=== PATIENT | male | born 1990 | race Caucasian/White ===

== ENCOUNTER 2018-04-18 21:35 | Emergency (ER) | payer BC, OTHER ==
[2018-04-18] MEDS ORDERED: Ondansetron 4 MG/2 ML SDV IVPUSH ONE (21:41)
[2018-04-18] MEDS ORDERED: Sodium Chloride 0.9% 1,000 ML IV ONE (21:41)
[2018-04-18] MEDS ORDERED: Diphtheria,Pertussis(Acell),Tetanus Vaccine 0.5 ML Syringe IM ONE (21:51)
--- NOTE | 2018-04-18 21:54 | EDM.PDOC ---
ED HPI GENERAL MEDICAL PROBLEM headache Pain Score (Numeric/FACES): 5 <Cj Tony - Last Filed: 04/18/18 23:23> - General Source of Information: Reports: Patient History Limitations: Reports: No Limitations - History of Present Illness Onset: Today <Adams Vinson Emeka - Last Filed: 04/19/18 15:33> - General Chief Complaint: Head Injury Stated Complaint: HIT IN FACE/HEAD BY BASEBALL Time Seen by Provider: 04/18/18 21:41 - History of Present Illness INITIAL COMMENTS - FREE TEXT/NARRATIVE: HISTORY AND PHYSICAL: History of present illness: Patient is a 27-year-old male who presents to the emergency room today with complaints of left orbital pain after being hit in the face with a baseball. He was playing baseball and missed a pitch and was hit in the left eye, does have swelling and pain. He reports that his left eye is "funny already" as he reports he has an immature left eye. Unsure of last tetanus shot. Review of systems: As per history of present illness and below otherwise all systems reviewed and negative. Past medical history: As per history of present illness and as reviewed below otherwise noncontributory. Surgical history: As per history of present illness and as reviewed below otherwise noncontributory. Social history: No reported history of drug or alcohol abuse. Family history: As per history of present illness and as reviewed below otherwise noncontributory. Physical exam: General: Well-developed and well-nourished 27-year-old male. Alert and oriented. Nontoxic appearing and in no acute distress. HEENT: Atraumatic, normocephalic, pupils equal and reactive bilaterally, negative for conjunctival pallor or scleral icterus, mucous membranes moist, throat clear, neck supple, nontender, trachea midline. No muscular impingement with ocular movement. Soft tissue swelling noted to the left upper lid and left cheek bone. No drooling or trismus noted. No meningeal signs Lungs: Clear to auscultation, breath sounds equal bilaterally, chest nontender. Heart: S1S2, regular rate and rhythm without overt murmur Abdomen: Soft, nondistended, nontender. Negative for masses or hepatosplenomegaly. Negative for costovertebral tenderness. Pelvis: Stable nontender. Genitourinary: Deferred. Rectal: Deferred. Skin: Intact, warm, dry. No lesions or rashes noted. Extremities: Atraumatic, moves all extremities per self without difficulty or deficits, negative for cords or calf pain. Neurovascular unremarkable. Neuro: Awake, alert, oriented. Cranial nerves II through XII unremarkable. Cerebellum unremarkable. Motor and sensory unremarkable throughout. Exam nonfocal. Notes: Dr. Tony did assume care of this patient at 2200. He is to follow up on the CT results. Diagnostics: Head CT, maxillofacial CT Therapeutics: Tetanus Impression: Head Injury Plan: Ice to affected area Motrin/Tylenol as directed follow-up primary medical doctor return as needed as discussed Definitive disposition and diagnosis as appropriate pending reevaluation and review of above. T (Adams Vinson) - Related Data Allergies Allergy/AdvReac Type Severity Reaction Status Date / Time No Known Allergies Allergy Verified 04/18/18 21:52 Home Meds: Home Meds . [No Known Home Meds] 04/18/18 [History] ED ROS GENERAL - Review of Systems Review Of Systems: ROS reveals no pertinent complaints other than HPI. <Adams Vinson - Last Filed: 04/19/18 15:33> ED EXAM, HEAD INJURY - Physical Exam Exam: See Below (See dictation) <Adams Vinson - Last Filed: 04/19/18 15:33> Course <Cj Tony - Last Filed: 04/18/18 23:23> <Adams Vinson - Last Filed: 04/19/18 15:33> - Vital Signs Text/Narrative:: Patient's emergency room course is been unremarkable CT of his brain and facial bones were remarkable for periorbital hematoma no associated fractures or intracranial pathology patient be discharged with head injury and blunt facial trauma ice as directed Motrin/Tylenol as directed follow-up primary medical doctor return as needed as discussed (Cj Tony) Last Recorded V/S: Last Vital Signs Temp 97.5 F 04/18/18 21:50 Pulse 81 04/18/18 21:50 Resp 18 04/18/18 21:50 BP 124/82 04/18/18 21:50 Pulse Ox 96 04/18/18 21:50 - Orders/Labs/Meds Orders: Active Orders 24 hr Category Date Time Status Communication Order [RC] STAT Care 04/18/18 21:54 Active EKG Documentation Completion [RC] STAT Care 04/18/18 21:41 Inactive Vaccines to be Administered [RC] PER UNIT ROUTINE Care 04/18/18 21:51 Active Meds: Medications Discontinued Medications Generic Name Dose Route Start Last Admin Trade Name Evin PRN Reason Stop Dose Admin Diphtheria/Tetanus/Acell Pertussis 0.5 ml 04/18/18 21:51 04/19/18 04:26 Adacel IM 04/18/18 21:52 Not Given .ONCE ONE Sodium Chloride 1,000 mls @ 999 mls/hr 04/18/18 21:41 Normal Saline IV 04/18/18 22:41 STAT ONE Ondansetron HCl 4 mg 04/18/18 21:41 Zofran IVPUSH 04/18/18 21:42 ONETIME ONE Departure - Departure Time of Disposition: 23:24 Condition: Good <Cj Tony - Last Filed: 04/18/18 23:23> <Adams Vinson - Last Filed: 04/19/18 15:33> - Departure Disposition: Home, Self-Care 01 Clinical Impression: Head injury Qualifiers: Encounter type: initial encounter Qualified Code(s): S09.90XA - Unspecified injury of head, initial encounter Facial trauma Qualifiers: Encounter type: initial encounter Qualified Code(s): S09.93XA - Unspecified injury of face, initial encounter - Discharge Information Referrals: PCP,None [Primary Care Provider] - Forms: ED Department Discharge Additional Instructions: The following information is given to patients seen in the emergency department who are being discharged to home. This information is to outline your options for follow-up care. We provide all patients seen in our emergency department with a follow-up referral. The need for follow-up, as well as the timing and circumstances, are variable depending upon the specifics of your emergency department visit. If you don't have a primary care physician on staff, we will provide you with a referral. We always advise you to contact your personal physician following an emergency department visit to inform them of the circumstance of the visit and for follow-up with them and/or the need for any referrals to a consulting specialist. The emergency department will also refer you to a specialist when appropriate. This referral assures that you have the opportunity for followup care with a specialist. All of these measure are taken in an effort to provide you with optimal care, which includes your followup. Under all circumstances we always encourage you to contact your private physician who remains a resource for coordinating your care. When calling for followup care, please make the office aware that this follow-up is from your recent emergency room visit. If for any reason you are refused follow-up, please contact the [facility] emergency department at and asked to speak to the emergency department charge nurse. [facility] [address] [place] [id number] Ice to affected area Motrin/Tylenol as directed follow-up primary medical doctor return as needed as discussed - My Orders Last 24 Hours: My Active Orders 04/18/18 21:41 EKG Documentation Completion [RC] STAT 04/18/18 21:51 Vaccines to be Administered [RC] PER UNIT ROUTINE 04/18/18 21:54 Communication Order [RC] STAT - Assessment/Plan Last 24 Hours: My Active Orders 04/18/18 21:41 EKG Documentation Completion [RC] STAT 04/18/18 21:51 Vaccines to be Administered [RC] PER UNIT ROUTINE 04/18/18 21:54 Communication Order [RC] STAT
--- NOTE | 2018-04-19 09:10 | CT ---
EXAM DATE: 04/18/18 PATIENT'S AGE: 27 Patient: NAILA GILES Facility: [place], [place] Site . Site : 1990 Study: CT Facial [id number]/[id number] 10:09:11 PM Ordering Physician: Chavo Corona Final Report: INDICATION: Trauma. TECHNIQUE: CT maxillofacial without contrast. COMPARISON: None FINDINGS: Facial bones: No fractures or bone lesions. Specifically the nasal bones, temporomandibular joints, maxilla and mandible appear intact. Orbits and globes: Unremarkable. Sinuses: 2.5 centimeter probable retention cyst right maxillary sinus. Soft tissues: Left periorbital hematoma. IMPRESSION: Left periorbital hematoma with no associated fractures. The ocular globes are intact. Dictated by Edgardo Donovan MD @ 04/18/2018 10:28:18 PM Dictated by: Edgardo Donovan MD @ 04/18/2018 22:28:26 (Electronic Signature) Report Signed by Proxy. [facility]ENTER[facility]omez
--- NOTE | 2018-04-19 09:11 | CT ---
EXAM DATE: 04/18/18 PATIENT'S AGE: 27 Patient: NAILA GILES Facility: [place], [place] Site . Site : 1990 Study: CT Head [id number]/[id number] 10:09:48 PM Ordering Physician: Chavo Corona Final Report: INDICATION: Hip and left eye with baseball TECHNIQUE: CT head without contrast. COMPARISON: None FINDINGS: CSF spaces: Within normal limits for age. Brain parenchyma: The montero-white differentiation is normal. No sign of mass, hemorrhage, or midline shift. Skull base and calvarium: The visualized paranasal sinuses and mastoid air cells demonstrate no acute or significant findings. The visualized orbits are grossly unremarkable. No skull fractures. Left periorbital hematoma [place] IMPRESSION: Left periorbital hematoma with no associated fractures or evidence of acute intracranial pathology. Dictated by Edgardo Donovan MD @ 04/18/2018 10:34:35 PM Dictated by: Edgardo Donovan MD @ 04/18/2018 22:34:39 (Electronic Signature) Report Signed by Proxy. [facility]
== END 2018-04-18 23:42 | disposition home or self-care (01) ==
LOC: MW.ED 21:35
DX: S09.90XA Unspecified injury of head, initial encounter (principal); S09.93XA Unspecified injury of face, initial encounter; W21.03XA Struck by baseball, initial encounter
CPT/HCPCS: 70450; 70450-26; 70486; 70486-26; 99283; 99284-25